=== PATIENT | male | born 1985 | race Caucasian/White ===

== ENCOUNTER 2019-03-08 16:01 | Emergency (ER) | payer BC, SELFPAY ==
[2019-03-08 16:03] VITALS: BP 129/71; PULSE 85; RESP 16; TEMP 36.7; O2SAT 98
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
[2019-03-08] MEDS: Cephalexin 500 MG CAP PO (17:12)
== END 2019-03-08 17:27 | disposition home or self-care (01) ==
PROVIDERS: Emergency Provider Physician Assistant
DX: S81.812A Laceration without foreign body, left lower leg, initial encounter (principal); V17.0XXA Pedal cycle driver injured in collision with fixed or stationary object in nontraffic accident, initial encounter
CPT/HCPCS: 12032; 90471